=== PATIENT | male | born 1940 | race Caucasian/White ===

== ENCOUNTER → 2018-08-09 | Outpatient (CLI) | payer OTHER | LOC: BMCIMAGING 14:14 | PROVIDERS: ATTEND Internal Medicine | DX: Z13.820 Encounter for screening for osteoporosis (principal); Z51.81 Encounter for therapeutic drug level monitoring; Z79.52 Long term (current) use of systemic steroids; Z79.01 Long term (current) use of anticoagulants; Z85.46 Personal history of malignant neoplasm of prostate ==